=== PATIENT | male | born 1995 | race Two or more races ===

== ENCOUNTER 2017-01-29 19:55 | Emergency (ER) | payer MEDICAID ==
[~2017-01-29] VITALS: Ht 162.6 cm; Wt 54.4 kg
[2017-01-29 20:15] VITALS: BP 114/79
[2017-01-29] MEDS ORDERED: cefTRIAXone SOD 1,000 MG VL IM ONE (23:45)
[2017-01-30] MEDS ORDERED: TETANUS-DIPTH-ACEL PERTUSSIS 0.5ML SYRG IM ONE (00:30)
[2017-01-30] MEDS ORDERED: IBUPROFEN 600 MG TAB PO ONE (00:45)
== END 2017-01-30 01:07 | disposition home or self-care (01) ==
LOC: ER 20:00
DX: S61.411A Laceration without foreign body of right hand, initial encounter (principal); W54.0XXA Bitten by dog, initial encounter; Y93.89 Activity, other specified; Y92.89 Other specified places as the place of occurrence of the external cause; Y99.8 Other external cause status
CPT/HCPCS: 12002; 73120; 90471; 90715; 96372; 99284; J0696

== ENCOUNTER 2020-03-05 00:38 | Emergency (ER) | payer SELFPAY ==
[~2020-03-05] VITALS: Ht 162.6 cm; Wt 59.0 kg
[2020-03-05 00:49] VITALS: BP 121/81
== END 2020-03-05 02:13 ==
LOC: ER 00:44
DX: M25.571 Pain in right ankle and joints of right foot (principal); F10.129 Alcohol abuse with intoxication, unspecified; Y90.8 Blood alcohol level of 240 mg/100 ml or more; V43.52XA Car driver injured in collision with other type car in traffic accident, initial encounter; Y93.89 Activity, other specified; Y92.89 Other specified places as the place of occurrence of the external cause; Y99.8 Other external cause status
CPT/HCPCS: 36415; 70450; 73610; 80320